=== PATIENT | female | born 1950 ===

== ENCOUNTER 2017-03-31 14:37 | Emergency (ER) | payer MEDICARE ==
[2017-03-31 14:46] VITALS: BP 146/72
--- NOTE | 2017-03-31 14:55 | UC ---
Abdominal Pain Female HPI - HPI Summary HPI Summary: The patient comes in today for: 1. Abdominal pain: Onset: 12 hours ago. Palliative/provocative: Breathing seemed to make the pain better. She has not eaten. She states that she has had indigestion problems in the past. Belching seems to help. Quality: Cramping Region: Periumbilical Severity: 5/10 Time: Constant. Associated symptoms: Last BM: this morning--normal. Vomiting: None Nausea: Present Bloating: Present. FEvers: No temperatures taken. Chills: Sometimes. Diarrhea: None. Previous disease: Under stress she has diarrhea. * - History of Current Complaint Chief Complaint: UCAbdominalPain Stated Complaint: ABD PAIN/NAUSEA Time Seen by Provider: 03/31/17 14:47 Hx Obtained From: Patient Allergies/Adverse Reactions: Allergies Allergy/AdvReac Type Severity Reaction Status Date / Time No Known Allergies Allergy Verified 03/31/17 14:46 Home Medications: Home Medications amLODIPine TAB* [Norvasc 5 mg TAB*] 10 mg PO DAILY 03/31/17 [History Confirmed 03/31/17] PMH/Surg Hx/FS Hx/Imm Hx Previously Healthy: No Endocrine History: Thyroid Disease, Hypothyroidism Cardiovascular History: Hypertension - Surgical History Surgical History: Yes Surgery Procedure, Year, and Place: steel terry in right leg--h/o fx - Family History Known Family History: Positive: Hypertension, Diabetes - Social History Occupation: Retired Alcohol Use: None Substance Use Type: None Smoking Status (MU): Never Smoked Tobacco Review of Systems Constitutional: Negative Skin: Negative Eyes: Negative ENT: Negative Respiratory: Negative Cardiovascular: Negative Gastrointestinal: Abdominal Pain Genitourinary: Negative All Other Systems Reviewed And Are Negative: Yes Physical Exam Triage Information Reviewed: Yes Appearance: Well-Appearing, No Pain Distress, Well-Nourished Vital Signs: Initial Vital Signs Temp 98.3 F 03/31/17 14:40 Pulse 101 03/31/17 14:40 Resp 16 03/31/17 14:40 BP 146/72 03/31/17 14:40 Pulse Ox 99 03/31/17 14:40 Vital Signs Reviewed: Yes Eyes: Positive: Conjunctiva Clear. Negative: Discharge ENT: Positive: Hearing grossly normal. Negative: Pharyngeal erythema, Nasal congestion, Nasal drainage, TM bulging, TM dull, TM red, Tonsillar swelling, Tonsillar exudate Dental: Negative: Gross Decay/Caries @, Dental Fracture @ Neck: Positive: Supple, Nontender, No Lymphadenopathy. Negative: Nuchal Rigidity Respiratory: Positive: Lungs clear, No respiratory distress, No accessory muscle use. Negative: Crackles, Wheezing Cardiovascular: Positive: RRR, No Murmur Abdomen Description: Positive: No Organomegaly, Soft. Negative: Nontender - She has minimal tenderness to palpation of the LUQ. There is no rebound or percussion tenderness. No masses., Bruit, Distended, Guarding, Peritoneal Signs Musculoskeletal: Positive: Strength Intact, ROM Intact Neurological: Positive: Alert, Muscle Tone Normal Psychological: Positive: Age Appropriate Behavior, Consolable Skin: Positive: rashes - She has an erythematous macular rash of the lower abdominal wall with skin edema and excoriations. Diagnostics - Laboratory Diagnostic Studies Completed/Ordered: Urine screen: Specific gravity: 1.015. WBC: 2+. Nitrite: (-). Blood: (-). Protein: (+). Glucose: (-) Abd Pain Female Course/Dx - Course Course Of Treatment: The patient was told that I was not able to make an exact diagnosis for the cause of their abdominal pain. Further, the patient was told that many things can cause this type of pain--some benign and some life- threatening. Also, the patient was told that some of these life-threatening conditions may present with minimal symptoms or in. atypical ways. Based on all of this, the patient was told that my recommendation is for them to go to the ER. where there can be a more in-depth evaluation of their symptoms. However, she did not want to do this. She states that she will follow up with her primary care provider. - Differential Dx/Diagnosis Provider Diagnoses: Abdominal pain. Discharge - Discharge Plan Condition: Stable Disposition: HOME Patient Education Materials: Acute Abdominal Pain (ED) Referrals: Miguel Jones MD [Primary Care Provider] - As Soon As Possible (If you are not going to the ER, please see your primary care provider as soon as you can. )
== END 2017-03-31 15:19 | disposition left against medical advice (07) ==
LOC: UCCORT 14:37
DX: R10.33 Periumbilical pain (principal); E03.9 Hypothyroidism, unspecified; I10 Essential (primary) hypertension
CPT/HCPCS: 81003; 87086; 99211; G0463

== ENCOUNTER 2017-06-03 16:59 | Emergency (ER) | payer MEDICARE ==
--- NOTE | 2017-06-03 17:09 | UC ---
Abdominal Pain Female HPI - HPI Summary HPI Summary: 66 YEAR OLD FEMALE PRESENTS WITH COMPLAINS OF AN ABSCESS AT THE SITE OF AN OPEN CHOLEY. - History of Current Complaint Stated Complaint: STOMACH DRAINAGE PORT SKIN COMPLAINT Time Seen by Provider: 06/03/17 17:08 Hx Obtained From: Patient Onset/Duration: Sudden Onset Severity Initially: Moderate Severity Currently: Moderate Pain Scale Used: 0-10 Numeric - 5 Character: Burning, Sharp Aggravating Factor(s): Nothing Alleviating Factor(s): Nothing Associated Signs and Symptoms: Positive: Negative Allergies/Adverse Reactions: Allergies Allergy/AdvReac Type Severity Reaction Status Date / Time No Known Allergies Allergy Verified 06/03/17 17:12 PMH/Surg Hx/FS Hx/Imm Hx Previously Healthy: Yes - Surgical History Surgical History: Yes Surgery Procedure, Year, and Place: steel terry in right leg--h/o fx - Family History Known Family History: Positive: Hypertension, Diabetes - Social History Alcohol Use: None Substance Use Type: None Smoking Status (MU): Never Smoked Tobacco Review of Systems Constitutional: Negative Skin: Other - RIGHT ABDOMINAL ABSCESS Eyes: Negative ENT: Negative Respiratory: Negative Cardiovascular: Negative Gastrointestinal: Negative Genitourinary: Negative Motor: Negative Neurovascular: Negative Musculoskeletal: Negative Neurological: Negative Psychological: Negative All Other Systems Reviewed And Are Negative: Yes Physical Exam Triage Information Reviewed: Yes Eye Exam: Normal ENT Exam: Normal Dental Exam: Normal Neck exam: Normal Neck: Positive: 1 Respiratory Exam: Normal Cardiovascular Exam: Normal Abdominal Exam: Normal Musculoskeletal Exam: Normal Neurological Exam: Normal Psychological Exam: Normal Skin: Positive: Other - RIGHT ABDOMINAL ABSCESS Abd Pain Female Course/Dx - Differential Dx/Diagnosis Provider Diagnoses: RIGHT ABDOMINAL ABSCESS. RIGHT INCISION SITE INFECTION Discharge - Discharge Plan Condition: Stable Disposition: HOME Patient Education Materials: Abscess (ED) Referrals: CHRISTINA Aguilera [Medical Doctor] - Additional Instructions: PLEASE GO TO ER TO ASSESS ABDOMINAL ABSCESS POST OPEN CHOLEY.
[2017-06-03 17:12] VITALS: BP 144/66
== END 2017-06-03 17:23 | disposition home or self-care (01) ==
LOC: UCCORT 16:59
DX: T81.4XXA Infection following a procedure, initial encounter (principal); L02.211 Cutaneous abscess of abdominal wall
CPT/HCPCS: 99211; G0463